=== PATIENT | male | born 1955 | race Caucasian/White ===

== ENCOUNTER → 2016-09-19 | Outpatient (CLI) | payer OTHER ==
[~2016-09-19] MED LIST: ANTIVERT/2525 M1 PO; ZOFRAN ODT4 MG SL
== END | disposition home or self-care (01) ==
LOC: RAD 15:44
DX: M50.323 Other cervical disc degeneration at C6-C7 level (principal); M48.02 Spinal stenosis, cervical region; M25.78 Osteophyte, vertebrae; M25.512 Pain in left shoulder

== ENCOUNTER → 2018-12-18 | Outpatient (CLI) | payer OTHER | END | disposition home or self-care (01) | LOC: US 00:41 | DX: I77.1 Stricture of artery (principal); R07.89 Other chest pain ==

== ENCOUNTER → 2022-04-01 | Day surgery (SDC) | payer MEDICARE ==
[~2022-04-01] VITALS: Ht 182.8 cm; Wt 117.5 kg
[~2022-04-01] MED LIST changes: +ASPIRIN FOR CHI81 MG PO; +PLAVIX75 M1 PO
[2022-04-01 07:30] VITALS: BP 124/74
[2022-04-01 08:50] VITALS: BP 119/72
[2022-04-01 09:05] VITALS: BP 127/79
[2022-04-01 09:18] VITALS: BP 132/79
== END | disposition home or self-care (01) ==
LOC: SDC 03-28 11:00
PROVIDERS: ATTEND Surgery
DX: Z12.11 Encounter for screening for malignant neoplasm of colon (principal); D12.0 Benign neoplasm of cecum; K57.30 Diverticulosis of large intestine without perforation or abscess without bleeding; Z87.891 Personal history of nicotine dependence; Z79.899 Other long term (current) drug therapy

== ENCOUNTER → 2022-07-08 | Day surgery (SDC) | payer MEDICARE ==
[~2022-07-08] VITALS: Ht 182.8 cm; Wt 117.9 kg
[~2022-07-08] MED LIST changes: +HYDROCODONE-AC1 EAC1 PO; +SEPTDS PO
[2022-07-08 09:15] VITALS: BP 107/65
[2022-07-08 10:48] VITALS: BP 104/67
[2022-07-08 11:00] VITALS: BP 113/70
[2022-07-08 11:18] VITALS: BP 116/72
== END | disposition home or self-care (01) ==
LOC: SDC 07-04 12:30
PROVIDERS: ATTEND Surgery
DX: D48.9 Neoplasm of uncertain behavior, unspecified (principal); L02.213 Cutaneous abscess of chest wall; Z87.891 Personal history of nicotine dependence

== ENCOUNTER → 2024-05-06 | Outpatient (CLI) | payer MEDICARE ==
[2024-05-06 10:07] LABS: BASO # 0.1 10*3/uL (0.0-0.1); BASO % 0.9 % (0.0-1.0); EOS # 0.2 10*3/uL (0.0-0.4); EOS % 2.5 % (1.0-4.0); HEMATOCRIT 49.3 % (42.0-52.0); MEAN CELL VOLUME 92.7 fl (80.0-94.0); MEAN CORPUSCULAR HGB 30.5 pg (27.0-31.0); MEAN CORPUSCULAR HGB CONC 32.9 g/dl (33.0-37.0); MEAN PLATELET VOLUME 9.5 fl (9.6-12.3); MONO # 0.7 10*3/uL (0.1-1.0); MONO % 8.6 % (3.0-9.0); NEUT # 4.5 10*3/uL (2.3-7.9); NEUT % 58.7 % (47.0-73.0); PLATELET COUNT AUTOMATED 284 10*3/uL (130-400); RED BLOOD COUNT 5.32 10*6/uL (4.50-5.90); RED CELL DISTRI WIDTH 13.2 % (0-14.5); WHITE BLOOD COUNT 7.7 10*3/uL (4.8-10.8)
[2024-05-06 10:54] LABS: ALKALINE PHOSPHATASE 143 U/L (46-116); BUN 16 mg/dl (9-23); CHLORIDE 107 mmol/L (98-107); CHOLESTEROL 188 mg/dL (<200); LDL CHOLESTEROL 121 mg/dL (9-159); POTASSIUM 4.2 mmol/L (3.4-5.1); SGPT/ALT 17 U/L (5-49); TOTAL PROTEIN 7.3 gm/dL (6.0-8.0); TRIGLYCERIDES 98 mg/dl (<150)
== END | disposition home or self-care (01) ==
LOC: LAB 09:40
PROVIDERS: ATTEND Family Medicine
DX: M47.816 Spondylosis without myelopathy or radiculopathy, lumbar region (principal); M48.061 Spinal stenosis, lumbar region without neurogenic claudication; M25.78 Osteophyte, vertebrae; Z79.899 Other long term (current) drug therapy; E55.9 Vitamin D deficiency, unspecified

== ENCOUNTER 2025-04-19 01:51 | Emergency (ER) | payer MEDICARE ==
[~2025-04-19] VITALS: Ht 182.8 cm; Wt 117.9 kg
[2025-04-19 03:00] LABS: BILIRUBIN Negative (Negative); BLOOD 3+ (Negative); CLARITY Cloudy (Clear); COLOR Dark Yellow (Yellow); KETONE Trace (Negative); LEUKO ESTERASE Trace (Negative); NITRITE Negative (Negative); PH 5.0 (4.5-8.0); SPECIFIC GRAVITY >= 1.030 (1.001-1.030); UROBILINOGEN 1.0 E.U./dl (0.0-1.0)
[2025-04-19] MEDS ORDERED: Ondansetron Hydrochloride 4 MG/2 ML VIAL IV ONE (03:05)
[2025-04-19 03:32] LABS: BACTERIA TRACE; CALCIUM OXALATE CRYSTALS 1+; RBC 51-100 rbc/hpf (0-2)
[2025-04-19] MEDS ORDERED: HYDROCODONE-AC1 EAC1 PO (05:06)
[2025-04-19] MEDS ORDERED: Ondansetron4 MG PO (05:06)
[2025-04-19] MEDS ORDERED: FLOMAX0.4 MG PO (05:06)
== END 2025-04-19 05:20 | disposition home or self-care (01) ==
LOC: ED 01:51
PROVIDERS: Internal Medicine
DX: N13.2 Hydronephrosis with renal and ureteral calculous obstruction (principal); Z90.49 Acquired absence of other specified parts of digestive tract